=== PATIENT | male | born 1985 | race Caucasian/White ===

== ENCOUNTER 2021-03-31 12:16 | Outpatient (CLI) | payer OTHER, SELFPAY ==
--- NOTE | ~2021-03-31 | XR_ITS ---
XR lumbar spine 2-3V DATE: 03/31/2021 12:45 INDICATION: Low back pain for one year, increased in severity since 03/28/2021 after patient felt a po p TECHNIQUE: AP, lateral, coned lateral lumbosacral views COMPARISON: None FINDINGS: Normal alignment of the lumbar spine. No fracture or bone destruction is evident. The lumba r pedicles are intact. There is moderate degenerative disc disease at L5-S1. Remaining lumbar interspaces are well preserved . The sacroiliac joints are intact. IMPRESSION: Moderate degenerative disc disease at L5-S1 Reviewed, dictated and finalized at location A.
[2021-03-31 12:31] LABS: Basophils Absolute Auto 0.04 K/mm3 (0.00-0.10); Basophils Percent Auto 0.6 % (0.0-1.0); Eosinophils Absolute Auto 0.09 K/mm3 (0.02-0.50); Eosinophils Percent Auto 1.4 % (1.0-6.0); Hematocrit 42.2 % (40.0-54.0); Immature Granulocyte Absolute 0.02 K/mm3 (0.00-0.00); Immature Granulocyte Percent A 0.3 % (0.0-0.0); Lymphocytes Absolute Auto 1.61 K/mm3 (1.10-4.50); Lymphocytes Percent Auto 25.3 % (18.0-42.0); Mean Corpuscular HGB Conc 35.5 g/dL (32.0-36.0); Mean Corpuscular Hemoglobin 30.5 pg (27.0-31.0); Mean Corpuscular Volume 85.8 fL (78.0-102.0); Mean Platelet Volume 9.1 fl (8.7-11.0); Monocytes Absolute Auto 0.59 K/mm3 (0.10-0.90); Monocytes Percent Auto 9.3 % (2.0-11.0); Neutrophils Percent Auto 63.1 % (50.0-70.0); Platelet Count Result 243 K/mm3 (150-420); Red Blood Count 4.92 M/mm3 (4.70-6.10); Red Cell Distribution Width 11.8 % (11.6-14.4); White Blood Count 6.4 K/mm3 (4.8-10.8)
[2021-03-31 12:42] LABS: Add Urine Microscopic? NO; Appearance Urine Clear (Clear); Bilirubin Urine Negative (Negative); Blood Urine Negative (Negative); Color Urine Yellow (Yellow); Glucose Urine UA Negative (Negative); Ketones Urine Negative (Negative); Leukocyte Esterase Ur Negative (Negative); Nitrate Urine Negative (Negative); Protein Urine Negative (Negative); Urobilinogen Urine 0.2 mg/dL (0.2-1.0); pH Urine 5.5 (5.0-8.0)
[2021-03-31 13:30] LABS: Alanine Aminotransferase 50 U/L (16-63); Albumin Level 4.2 g/dL (3.4-5.0); Alkaline Phosphatase 77 U/L (46-116); Anion Gap 8 mmol/L (8-16); Aspartate Amino Transferase 23 U/L (15-37); Bilirubin,Total 0.8 mg/dL (0.00-1.00); Blood Urea Nitrogen 14 mg/dL (7-18); CRP < 0.2 mg/dL (0.0-0.9); Calcium 9.2 mg/dL (8.5-10.1); Carbon Dioxide 29 mmol/L (21-32); Chloride 103 mmol/L (98-108); Cholesterol 169 mg/dL (0-200); Estimated Glomerular Filt Rate > 60; Glucose 85 mg/dL (70-99); HDL Direct 51 mg/dL (40-60); LDL Cholesterol Calculated 83 mg/dL (<130); Osmolality Calculated 289 mOsm/kg (285-295); Potassium 4.5 mmol/L (3.5-5.1); Sodium 140 mmol/L (136-145); Thyroid Stimulating Hormone 0.24 uIU/mL (0.36-3.74); Total Protein 8.1 g/dL (6.4-8.2); Triglycerides 176 mg/dL (0-150)
[2021-04-02 10:23] LABS: Free T3 3.15 pg/mL (2.18-3.98); Free T4 Free Thyroxine 1.04 ng/dL (0.76-1.46)
[2021-04-02 20:52] LABS: T4 Thyroxine 8.6 mcg/dL (4.9-10.5)
== END 2021-03-31 12:17 | disposition home or self-care (01) ==
LOC: CHSLAB 12:20
PROVIDERS: PCP Internal Medicine; Visit Provider Internal Medicine
DX: Z00.00 Encounter for general adult medical examination without abnormal findings (principal); M54.9 Dorsalgia, unspecified; R94.6 Abnormal results of thyroid function studies
CPT/HCPCS: 36415; 72100; 80053; 80061; 81003; 84436; 84439; 84443; 84480; 84481; 85025; 86140

== ENCOUNTER 2021-04-09 10:57 | Outpatient (RCR) | payer OTHER, SELFPAY ==
--- NOTE | 2021-04-21 14:29 | PTOPEVAL ---
Thank you for referring Flash Hinton to [facility].? The patient is scheduled to be seen for therapy? __2__x/week for 8 visits. Please review, sign, date and return this plan of care FELICIANO. I agree with and certify that the following plan of care is medically necessary. Referring Physician Date Admitting Provider: Attending Provider: Neftali Cardona MD Referring Provider: *PT Outpatient Evaluation Start: 04/09/21 10:53 Freq: Status: Active Protocol: Document 04/09/21 11:00 MS (Rec: 04/09/21 12:15 MS [email or web address]) Evaluation Information Problem Diagnosis LBP Onset 04/02/21 Subjective Information Flash Hinton is a 36 year Query Text:As Reported By Patient/ old male who reports LBP on Family this date. 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 Back pain reoccurred with increased time in flexion. Pain occassionally with sitting, other times no pain. Feels best during standing/ ambulation. Had an X-ray showing moderate arthritis. Has experiences spasms in the past, but not recently. NSAIDs PRN. Prior Level of Function Comments Additional Prior Level of Function Works in maintenance, has to Comments lift heavy objects; likes to hike and shoot guns, perform yard work Pain Assessment Pain Scale Pain Scale Used Numeric (1 - 10) Self Report Pain Assessment Lower Back Reported Pain Level 1 Lowest Pain Intensity 1 Greatest Pain Intensity 4 Pain Score Pain Score 1: Self Report Interventions Used Interventions Used By Clinicians Activity or ADL's,Education, Exercise Cervical and Lumbar ROM Lumbar ROM Lumbar Flexion Active Mid Cam Query Text:Hands to: Lumbar Extension (0-40) 30 Query Text:Active in Degrees Lumbar Lateral Flexion Right (0-40) 30 Query Text:Active in Degrees Lumbar Lateral Flexion Left (0-40) 30 Query Text:Active in Degrees Lateral Rotation Right (0-45) 35 Query Text:Active in Degrees Lateral Rotation Left (0-45) 35 Query Text:Active in Degrees Lower Extremity Muscle Strength Testing Hip Strength Bilateral Hip Flexion Strength 4+ Good + Hip Extension Strength 5 No
--- NOTE | 2021-05-22 16:13 | PTOPEVAL ---
Thank you for referring Flash Hinton to [facility] [place].? The patient is scheduled to be seen for therapy? ____x/week for ___ weeks. Please review, sign, date and return this plan of care FELICIANO. I agree with and certify that the following plan of care is medically necessary. Referring Physician Date Admitting Provider: Attending Provider: Neftali Cardona MD Referring Provider: *PT Outpatient Evaluation Start: 04/09/21 10:53 Freq: Status: Active Protocol: Document 05/22/21 15:05 [facility] [email or web address]] (Rec: 05/22/21 16:12 [facility] [email or web address]) Evaluation Information Problem Diagnosis LBP Onset 04/02/21 Additional Evaluation Detail oswestry = Subjective Information patient reports he is sore Query Text:As Reported By Patient/ today. he reports symptoms Family have really not changed much. he reports he was feeling pretty good this morning, but mowed his lawn and was flared up with this activity. he reports increased pain with sleeping on his side. Pain Assessment Timing of Pain Assessment Timing of Pain Assessment Assessment Pain Scale Pain Scale Used Numeric (1 - 10) Self Report Pain Assessment Lower Back Reported Pain Level 4 Pain Score Pain Score 4: Self Report Interventions Used Interventions Used By Clinicians Activity or ADL's,Education, Exercise Cervical and Lumbar ROM Lumbar ROM Lumbar Flexion Active Ankle Query Text:Hands to: Lumbar Extension (0-40) 40 Query Text:Active in Degrees Lumbar Lateral Flexion Right (0-40) 40 Query Text:Active in Degrees Lumbar Lateral Flexion Left (0-40) 40 Query Text:Active in Degrees Lower Extremity Muscle Strength Testing Hip Strength Bilateral Hip Flexion Strength 5 Normal Hip Extension Strength 5 Normal Hip Abduction Strength 5 Normal Knee Strength Bilateral Knee Flexion Strength 5 Normal Knee Extension Strength 5 Normal Ankle Strength Bilateral Ankle Dorsiflexion Strength 5 Normal Ankle Plantarflexion Strength 5 Normal Muscle Length Testing Muscle Length Testing Left Hamstring Length 20 Query Text:(90 - 90 Position) Right Hamstring Length 20 Query Text:(90 - 90 Position) Palpation Assessment Palpation Palpation patient presents with moderate restriction to PA glides of the lumbar spine and pain with pa glide of the L5/S1.
== END 2021-05-29 23:59 | disposition home or self-care (01) ==
LOC: CHSPT 10:57
PROVIDERS: PCP Internal Medicine; Visit Provider Internal Medicine
DX: M54.5 Low back pain (principal); M51.37 Other intervertebral disc degeneration, lumbosacral region
CPT/HCPCS: 97012; 97014; 97110; 97161; 97530; G0283

== ENCOUNTER 2022-08-11 12:58 | Outpatient (CLI) | payer OTHER, SELFPAY ==
--- NOTE | ~2022-08-11 | US_ITS ---
EXAMINATION: US thyroid DATE: 08/11/2022 13:46 INDICATION: Abnormal thyroid function. TECHNIQUE: Multiple ultrasound images of the thyroid were obtained. COMPARISON: None. FINDINGS: The right thyroid lobe measures 6.6 x 2.4 x 1.9 cm. The left thyroid lobe measures 6.2 x 2.0 x 1.8 c m. There is normal echotexture and echogenicity throughout the thyroid gland. No discrete nodules id entified. Normal vascular flow is present. IMPRESSION: 1. Normal thyroid. Reviewed, dictated and finalized at location A. IMPRESSION: 1. Normal thyroid.
== END 2022-08-11 12:59 | disposition home or self-care (01) ==
LOC: CHSIMG 12:59
PROVIDERS: PCP Internal Medicine; Visit Provider Internal Medicine
DX: R94.6 Abnormal results of thyroid function studies (principal)
CPT/HCPCS: 76536

== ENCOUNTER 2024-01-09 05:03 | Emergency (ER) | payer BC, SELFPAY ==
[2024-01-09 05:05] VITALS: BP 126/87; PULSE 76; RESP 18; TEMP 36.6; O2SAT 99
--- NOTE | 2024-01-09 05:29 | ED.EYEPROB ---
HPI - Eye Problem General Chief complaint: Eye Problems Stated complaint: eye issues Source: patient Mode of arrival: ambulatory Limitations: no limitations History of Present Illness HPI Narrative: This is a 38-year-old male that presents with some left eye irritation started approximately 1 week ago and was seen at an urgent care and was prescribed antibiotic eyedrops, over the course of the week his eye redness and discomfort has persisted currently there is no visual deficits but there is some redness in the conjunctiva with irritation. Patient does not wear contacts has a foreign body sensation in his left eye. MD chief complaint: eye pain and eye redness Onset (ago): day(s) Onset description: gradual Duration: constant Location: left eye Eye Symptoms: redness and foreign body sensation Related Data Allergies Allergy/AdvReac Type Severity Reaction Status Date / Time No Known Allergies Allergy Verified 01/09/24 05:08 Review of Systems Review of Systems: All systems reviewed & are unremarkable except as noted in HPI and below PMFSH Past Medical History Medical History Patient denies medical problems Exam Const: General: healthy appearing Nutritional Appearance: well nourished Orientation/consciousness: patient oriented x3 Eyes: Conjunctivae: conjunctival abnormality Pupils: Equal, round and reactive pupils present EOM: EOMs intact bilaterally Direct Ophthalmoscopy: photophobia Neck: Neck: normal visual inspection Resp: Effort & Inspection: normal respiratory effort Auscultation: clear to auscultation bilaterally Cardio: Rate: regular rate Rhythm: regular rhythm Course Course Emergency Course: tetracaine was used to numb the left eye, and left eye was visualized for any foreign objects which were not seen. Fluorescein stain applied and does show that he has a corneal abrasion at the 3 o'clock position of his left cornea. Vital Signs Vital signs: Vital Signs Temperature 36.6 C 01/09/24 05:05 Pulse Rate 76 01/09/24 05:05 Respiratory Rate 18 01/09/24 05:05 Blood Pressure 126/87 01/09/24 05:05 Pulse Oximetry 99 01/09/24 05:05 Oxygen Delivery Room Air 01/09/24 05:05 Temperature 36.6 C 01/09/24 05:05 Pulse Rate 76 01/09/24 05:05 Respiratory Rate 18 01/09/24 05:05 Blood Pressure 126/87 01/09/24 05:05 Pulse Oximetry 99 01/09/24 05:05 Oxygen Delivery Room Air 01/09/24 05:05 Procedures FB Removal Eye Foreign Body #1: Foreign Body Removal Date: 01/09/24 Foreign Body Removal Time: 05:32 Time Out performed: Yes Location: eye (L) Topical anesthetic used: tetracaine Evidence of corneal penetration: No Technique: irrigation and eye wash bottle Procedure performed under: direct visualization with magnification Post-procedure medication: ophthalmic antibiotic Patient tolerated procedure: well Foreign Body Removal Narrative: No foreign body was visualized Critical Care Time Critical Care Time Critical Care Time: No Discharge Plan Discharge Clinical Impression: Corneal abrasion Qualifiers: Encounter type: initial encounter Laterality: left Qualified Code(s): S05.02XA - Injury of conjunctiva and corneal abrasion without foreign body, left eye, initial encounter Conjunctivitis Qualifiers: Conjunctivitis type: unspecified Laterality: left Qualified Code(s): H10.9 - Unspecified conjunctivitis Patient Disposition: Home, Self-Care Condition: Stable Instructions: Antibiotic Form, Corneal Abrasion (ED), Conjunctivitis (ED) Additional Instructions: use antibiotic eyedrops as prescribed, and follow with Primary/ support director within 1 week for further evaluation and treatment. Prescriptions: New ciprofloxacin HCl 0.3 % drops See Rx Instructions .ROUTE .COMPLEX 7 Days Qty: 10 0RF Rx Instructions: put 1-2 d
== END 2024-01-09 05:45 | disposition home or self-care (01) ==
PROVIDERS: Emergency Provider Emergency Medicine; PCP Internal Medicine
DX: S05.02XA Injury of conjunctiva and corneal abrasion without foreign body, left eye, initial encounter (principal); H10.9 Unspecified conjunctivitis; T14.90XA Injury, unspecified, initial encounter
CPT/HCPCS: 99283; A9270

== ENCOUNTER 2024-06-10 07:20 | Outpatient (CLI) | payer BC, SELFPAY ==
[2024-06-10 07:35] LABS: Basophils Absolute Auto 0.05 K/mm3 (0.00-0.10); Eosinophils Absolute Auto 0.11 K/mm3 (0.02-0.50); Eosinophils Percent Auto 2.3 % (1.0-6.0); Hematocrit 40.3 % (40.0-54.0); Hemoglobin 14.5 g/dL (14.0-18.0); Immature Granulocyte Absolute 0.01 K/mm3 (0.00-0.00); Immature Granulocyte Percent A 0.2 % (0.0-0.0); Lymphocytes Absolute Auto 1.71 K/mm3 (1.10-4.50); Lymphocytes Percent Auto 35.2 % (18.0-42.0); Mean Corpuscular Hemoglobin 30.7 pg (27.0-31.0); Mean Corpuscular Volume 85.2 fL (78.0-102.0); Mean Platelet Volume 9.1 fl (8.7-11.0); Monocytes Absolute Auto 0.38 K/mm3 (0.10-0.90); Monocytes Percent Auto 7.8 % (2.0-11.0); Neutrophils Percent Auto 53.5 % (50.0-70.0); Platelet Count Result 275 K/mm3 (150-420); Red Blood Count 4.73 M/mm3 (4.70-6.10); Red Cell Distribution Width 11.9 % (11.6-14.4); White Blood Count 4.9 K/mm3 (4.8-10.8)
[2024-06-10 07:36] LABS: Add Urine Microscopic? NO; Appearance Urine Clear (Clear); Bilirubin Urine Negative (Negative); Blood Urine Negative (Negative); Color Urine Yellow (Yellow); Glucose Urine UA Negative (Negative); Ketones Urine Negative (Negative); Leukocyte Esterase Ur Negative (Negative); Nitrate Urine Negative (Negative); Protein Urine Negative (Negative); Specific Grav Ur >= 1.030 (1.010-1.020); Urobilinogen Urine 0.2 mg/dL (0.2-1.0)
[2024-06-10 08:37] LABS: Alanine Aminotransferase 38 U/L (16-63); Albumin Level 3.9 g/dL (3.4-5.0); Alkaline Phosphatase 89 U/L (46-116); Anion Gap 7 mmol/L (4-12); Aspartate Amino Transferase 22 U/L (15-37); Bilirubin,Total 0.5 mg/dL (0.00-1.00); Blood Urea Nitrogen 15 mg/dL (7-18); Carbon Dioxide 29 mmol/L (21-32); Chloride 104 mmol/L (98-108); Cholesterol 187 mg/dL (0-200); Estimated Glomerular Filt Rate > 60; Glucose 107 mg/dL (70-99); HDL Direct 66 mg/dL (40-60); LDL Cholesterol Calculated 98 mg/dL (<130); Osmolality Calculated 290 mOsm/kg (285-295); Potassium 4.8 mmol/L (3.5-5.1); Sodium 140 mmol/L (136-145); Thyroid Stimulating Hormone 0.57 uIU/mL (0.36-3.74); Total Protein 6.9 g/dL (6.4-8.2); Triglycerides 113 mg/dL (0-150)
== END 2024-06-10 07:21 | disposition home or self-care (01) ==
LOC: CHSLAB 07:24
PROVIDERS: PCP Internal Medicine; Visit Provider Internal Medicine
DX: Z00.00 Encounter for general adult medical examination without abnormal findings (principal)
CPT/HCPCS: 36415; 80053; 80061; 81003; 83036; 84443; 85025